=== PATIENT | male | born 2005 | race Caucasian/White ===

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

== ENCOUNTER 2024-07-22 07:57 | Emergency (ER) | payer MEDICAID ==
[~2024-07-22] VITALS: Ht 188 cm; Wt 65.7 kg
[2024-07-22 08:05] VITALS: O2SAT 100
[2024-07-22 08:10] VITALS: BP 127/81; PULSE 110; RESP 14; O2SAT 100
[2024-07-22 09:30] VITALS: TEMP 100.8
[2024-07-22] MEDS: ACETAMINOPHEN 325MG TABLET PO ONE (09:30)
[2024-07-22] MEDS: DEXAMETHASONE 10 MG/ML VIAL PO ONE (09:30)
[2024-07-22] MEDS ORDERED: AMOX-494 MT (10:19)
== END 2024-07-22 10:33 | disposition home or self-care (01) ==
LOC: ER 07:57
DX: J03.00 Acute streptococcal tonsillitis, unspecified (principal); Z20.822 Contact with and (suspected) exposure to COVID-19
CPT/HCPCS: 99283; 87426; J1100